=== PATIENT | female | born 1950 | race Caucasian/White ===

== ENCOUNTER 2017-07-22 21:01 | Observation (INO) | payer OTHER ==
[~2017-07-22] VITALS: Ht 154.9 cm; Wt 62.1 kg
[2017-07-22] MEDS ORDERED: ASPIRIN 325 MG TABLET ONE (21:24)
[2017-07-22 21:37] LABS: BASOPHILS % (AUTO) 0.4 % (0.0-5.0); HEMATOCRIT 36.8 % (36-48); LYMPHOCYTES % (AUTO) 24.8 % (21.0-51.0); MEAN CORPUSCULAR HEMOGLOBIN 30.9 pg (27.0-33.0); MEAN CORPUSCULAR VOLUME 88.4 fL (79-99); MONOCYTES % (AUTO) 6.7 % (3.0-13.0); NEUTROPHILS % (AUTO) 63.1 % (40.0-77.0); PLATELET COUNT (AUTO) 245 K/uL (130-400); RED BLOOD CELL COUNT(AUTO) 4.16 MIL/uL (4.00-5.50); WHITE BLOOD COUNT (AUTO) 11.4 K/uL (4.8-10.8)
[2017-07-22 21:41] LABS: APPEARANCE,URINE Clear (CLEAR); BILIRUBIN,URINE Small (NEGATIVE); COLOR,URINE Orange (YELLOW); GLUCOSE, URINE (UA) Negative (NEGATIVE); KETONES,URINE Negative (NEGATIVE); LEUKOCYTE ESTERASE ,URINE Small (NEGATIVE); NITRATE,URINE Positive (NEGATIVE); OCCULT BLOOD,URINE Trace (NEGATIVE); PROTEIN,URINE POS 1+ (NEGATIVE)
[2017-07-22 21:49] LABS: INR 1.14 (0.85-1.15); PARTIAL THROMBOPLASTIN TIME 32.5 SEC (26.3-35.5); PROTHROMBIN TIME 11.9 SEC (9.6-11.6)
[2017-07-22 21:55] LABS: WBC,URINE 0-1 /HPF (0-1)
[2017-07-22 21:56] LABS: BACTERIA,URINE Few /HPF (None Seen)
[2017-07-22 21:59] LABS: YEAST,URINE BUDDING Rare /HPF (None Seen)
[2017-07-22 22:00] LABS: ALBUMIN 4.3 g/dL (3.5-5.0); BILIRUBIN,TOTAL 0.4 mg/dL (0.2-1.0); CREATINE KINASE MB 1.3 ng/mL (0.5-3.6); CREATININE 0.9 mg/dL (0.5-1.5); POTASSIUM 3.4 mmol/L (3.5-5.1); SQUAMOUS EPITHELIAL CELL,UR Rare /HPF (0-2); TOTAL PROTEIN, SERUM 8.2 g/dL (6.0-8.3)
[2017-07-22] MEDS ORDERED: SODIUM CHLORIDE 0.9% 500ML 500 ML IV ONE (22:43)
[2017-07-22] MEDS ORDERED: NITROFURANTOIN MONOHYD/M-CRYST 100 MG CAPSULE PO ONE (22:43)
[2017-07-23] MEDS ORDERED: ONDANSETRON HCL MDV 20ML 2 MG/ML VIAL IVP PRN (01:00)
[2017-07-23] MEDS ORDERED: SODIUM CHLORIDE 0.9% 1000ML 1,000 ML IV SCH (01:00)
[2017-07-23] MEDS ORDERED: NITROFURANTOIN MONOHYD/M-CRYST 100 MG CAPSULE PO SCH (09:00)
[2017-07-23] MEDS ORDERED: FAMOTIDINE 20MG TAB 20 MG TAB PO SCH (09:00)
== END 2017-07-22 23:58 | disposition left against medical advice (07) ==
LOC: EDH 21:01 → EDHIP 22:45 → EDH 23:58
PROVIDERS: ADMIT Internal Medicine Nephrology; ATTEND Internal Medicine Nephrology
DX: N39.0 Urinary tract infection, site not specified (principal); E87.6 Hypokalemia; E87.1 Hypo-osmolality and hyponatremia; Z79.899 Other long term (current) drug therapy; Z79.82 Long term (current) use of aspirin; E78.5 Hyperlipidemia, unspecified; I10 Essential (primary) hypertension; E11.9 Type 2 diabetes mellitus without complications; Z90.49 Acquired absence of other specified parts of digestive tract; D72.829 Elevated white blood cell count, unspecified
CPT/HCPCS: 36415; 71045; 80053; 81001; 82550; 82553; 83874; 84484; 85025; 85610; 85730; 87088; 87186; 93005; 99285; G0378; J7040

== ENCOUNTER → 2017-09-10 | Outpatient (CLI) | payer OTHER | END | disposition home or self-care (01) | LOC: RAH 14:45 | PROVIDERS: ATTEND Family Medicine | DX: Z12.31 Encounter for screening mammogram for malignant neoplasm of breast (principal) | CPT/HCPCS: 77067 ==

== ENCOUNTER 2018-02-10 20:22 | Inpatient (IN) | payer OTHER ==
[~2018-02-10] VITALS: Ht 154.9 cm; Wt 59.4 kg
[2018-02-10] MEDS ORDERED: SODIUM CHLORIDE 0.9% 1000ML 1,000 ML IV ONE (21:52)
[2018-02-10] MEDS ORDERED: METOCLOPRAMIDE 10 MG/2 ML VIAL ONE (21:52)
[2018-02-10] MEDS ORDERED: METHYLPREDNISOLONE SOD SUCC 125MG/2ML VIAL ONE (21:52)
[2018-02-10 21:56] LABS: BASOPHILS % (AUTO) 0.5 % (0.0-5.0); EOSINOPHILS % (AUTO) 0.3 % (0.0-8.0); LYMPHOCYTES % (AUTO) 12.2 % (21.0-51.0); MEAN CORPUSCULAR HEMOGLOBIN 30.7 pg (27.0-33.0); MEAN CORPUSCULAR HGB CONC 34.9 g/dL (32.0-36.0); MONOCYTES % (AUTO) 6.6 % (3.0-13.0); NEUTROPHILS % (AUTO) 80.4 % (40.0-77.0); PLATELET COUNT (AUTO) 251 K/uL (130-400); RED BLOOD CELL COUNT(AUTO) 4.32 MIL/uL (4.00-5.50); RED CELL DISTRIBUTION WIDTH 13.1 % (11.0-15.5); WHITE BLOOD COUNT (AUTO) 13.2 K/uL (4.8-10.8)
[2018-02-10 22:05] LABS: CARBON DIOXIDE 26 mmol/L (21-32); CREATININE 0.7 mg/dL (0.5-1.5); GLOMERULAR FILTR. RATE CALC 89 mL/min (>60); GLUCOSE,RANDOM 148 mg/dL (70-105); POTASSIUM 4.4 mmol/L (3.5-5.1); SODIUM SERUM 122 mmol/L (136-145); UREA NITROGEN, BLOOD 10 mg/dL (7-18)
[2018-02-10 22:06] LABS: CHLORIDE 88 mmol/L (101-111)
[2018-02-10 22:07] LABS: CRP QUANTITATIVE < 0.20 mg/L (0.00-9.0)
[2018-02-10 22:51] LABS: APPEARANCE,URINE Clear (CLEAR); BILIRUBIN,URINE Negative (NEGATIVE); COLOR,URINE Yellow (YELLOW); GLUCOSE, URINE (UA) Negative (NEGATIVE); KETONES,URINE Negative (NEGATIVE); LEUKOCYTE ESTERASE ,URINE Negative (NEGATIVE); NITRATE,URINE Negative (NEGATIVE); OCCULT BLOOD,URINE Negative (NEGATIVE); PROTEIN,URINE Negative (NEGATIVE); UROBILINOGEN,URINE 0.2 mg/dL (0.2-1.0)
[2018-02-10] MEDS ORDERED: DIAZEPAM 5 MG TABLET PO ONE (23:30)
[2018-02-10] MEDS ORDERED: PROMETHAZINE HCL 25 MG SUPPOSITORY RC SCH (23:30)
[2018-02-10] MEDS ORDERED: ACETAMINOPHEN 325 MG TAB PO PRN (23:30)
[2018-02-10] MEDS ORDERED: KETOROLAC TROMETHAMINE 30MG/ML IV SCH (23:30)
[2018-02-11] VITALS (7 sets, daily range): BP systolic 107–149; BP diastolic 66–76
[2018-02-11] MEDS: SODIUM CHLORIDE 0.9% 1000ML 1,000 ML IV SCH ×3 (01:35→12:38)
[2018-02-11 06:05] LABS: BASOPHILS % (AUTO) 0.2 % (0.0-5.0); HEMATOCRIT 40.1 % (36-48); LYMPHOCYTES % (AUTO) 12.6 % (21.0-51.0); MEAN CORPUSCULAR HEMOGLOBIN 30.8 pg (27.0-33.0); MEAN CORPUSCULAR HGB CONC 34.7 g/dL (32.0-36.0); MONOCYTES % (AUTO) 1.3 % (3.0-13.0); NEUTROPHILS % (AUTO) 85.9 % (40.0-77.0); PLATELET COUNT (AUTO) 261 K/uL (130-400); RED BLOOD CELL COUNT(AUTO) 4.51 MIL/uL (4.00-5.50); RED CELL DISTRIBUTION WIDTH 12.8 % (11.0-15.5); WHITE BLOOD COUNT (AUTO) 6.4 K/uL (4.8-10.8)
[2018-02-11 06:21] LABS: ALBUMIN 3.5 g/dL (3.5-5.0); BILIRUBIN,TOTAL 0.4 mg/dL (0.2-1.0); CREATININE 0.8 mg/dL (0.5-1.5); CRP QUANTITATIVE 2.3 mg/L (0.00-9.0); POTASSIUM 4.3 mmol/L (3.5-5.1); TOTAL PROTEIN, SERUM 7.2 g/dL (6.0-8.3)
[2018-02-11 07:09] LABS: ERYTHROCYTE SEDIMENTATION RATE 5 MM/HR (0-30)
[2018-02-11] MEDS ORDERED: GADODIAMIDE 10 MMOL/20 ML ML IV ONE (08:08)
[2018-02-11] MEDS: FAMOTIDINE 20MG TAB 20 MG TAB PO SCH ×2 (08:30→21:29)
[2018-02-11] MEDS ORDERED: ROSU20TA30 PO (12:12)
[2018-02-11] MEDS ORDERED: ASPI-1197 PO (12:12)
[2018-02-11] MEDS ORDERED: AMLO5TAB7 PO (12:12)
[2018-02-11] MEDS ORDERED: TELM80TA2 PO (12:12)
[2018-02-11] MEDS ORDERED: ATEN50TA PO (12:12)
[2018-02-11] MEDS ORDERED: ASPIRIN 81MG TAB.CHEW ONE (21:14)
[2018-02-11] MEDS ORDERED: ATENOLOL 25 MG TABLET ONE (21:14)
[2018-02-12] MEDS: SODIUM CHLORIDE 0.9% 1000ML 1,000 ML IV SCH ×3 (02:16→22:19)
[2018-02-12 04:24] VITALS: BP 132/74
[2018-02-12 07:52] VITALS: BP 133/73
[2018-02-12] MEDS ORDERED: ATENOLOL 50 MG TABLET PO SCH (09:00)
[2018-02-12] MEDS ORDERED: ASPIRIN 81MG TAB.CHEW PO SCH (09:00)
[2018-02-12] MEDS: ATORVASTATIN CALCIUM 40 MG TABLET PO SCH (09:47)
[2018-02-12] MEDS: LOSARTAN 100 MG TABLET PO SCH (09:47)
[2018-02-12] MEDS: AMLODIPINE BESYLATE 5 MG TAB PO SCH (09:48)
[2018-02-12] MEDS: FAMOTIDINE 20MG TAB 20 MG TAB PO SCH ×2 (09:48→20:32)
[2018-02-12] MEDS ORDERED: MECLIZINE HCL 25 MG TABLET PO PRN (11:00)
[2018-02-12 11:43] VITALS: BP_SYST 142; BP_SYST 147; BP_SYST 164; BP_DIAS 72; BP_DIAS 75; BP_DIAS 83
[2018-02-12] MEDS ORDERED: IOHEXOL-350 75 ML VIAL IV ONE ×2 (11:46→14:57)
[2018-02-12] MEDS ORDERED: DiphenhydrAMINE HCL 50 MG/ML VIAL ONE (16:12)
[2018-02-12] MEDS ORDERED: DiphenhydrAMINE HCL 50 MG/ML VIAL IV PRN (16:15)
[2018-02-12 16:25] VITALS: BP 159/82
[2018-02-12 19:40] VITALS: BP 109/66
[2018-02-12] MEDS: ATENOLOL 50 MG TABLET PO SCH (20:32)
[2018-02-12] MEDS: ASPIRIN 81MG TAB.CHEW PO SCH (20:32)
[2018-02-13 00:05] VITALS: BP 121/65
[2018-02-13] MEDS: SODIUM CHLORIDE 0.9% 1000ML 1,000 ML IV SCH (03:53)
[2018-02-13 04:00] VITALS: BP 128/62
[2018-02-13 04:30] LABS: BASOPHILS % (AUTO) 0.9 % (0.0-5.0); EOSINOPHILS % (AUTO) 1.8 % (0.0-8.0); LYMPHOCYTES % (AUTO) 23.7 % (21.0-51.0); MEAN CORPUSCULAR HEMOGLOBIN 30.7 pg (27.0-33.0); MEAN CORPUSCULAR HGB CONC 34.3 g/dL (32.0-36.0); MEAN CORPUSCULAR VOLUME 89.5 fL (79-99); NEUTROPHILS % (AUTO) 63.6 % (40.0-77.0); PLATELET COUNT (AUTO) 218 K/uL (130-400); RED CELL DISTRIBUTION WIDTH 13.1 % (11.0-15.5); WHITE BLOOD COUNT (AUTO) 10.3 K/uL (4.8-10.8)
[2018-02-13 04:51] LABS: CREATININE 0.6 mg/dL (0.5-1.5); POTASSIUM 3.3 mmol/L (3.5-5.1)
[2018-02-13] MEDS ORDERED: POTASSIUM CHLORIDE 10% ELIXIR 20 MEQ/15 ML UDCUP PO PRN (05:30)
[2018-02-13] MEDS ORDERED: LIDOCAINE HCL-MPF 1% 2ML VIAL IVP PRN (05:30)
[2018-02-13] MEDS: POTASSIUM CHLORIDE 20 MEQ ERTAB PO PRN ×3 (06:26→18:50)
[2018-02-13] MEDS ORDERED: MAGNESIUM 2GM PREMIX 50ML 50 ML IV PRN (07:30)
[2018-02-13 07:46] VITALS: BP 160/82
[2018-02-13 08:56] LABS: CHOLESTEROL 189 mg/dL (<200); HDL CHOLESTEROL 51 mg/dL (35-85); LDL DIRECT 128 mg/dL (0-99); TRIGLYCERIDES 67 mg/dL (30-200)
[2018-02-13] MEDS: FAMOTIDINE 20MG TAB 20 MG TAB PO SCH ×2 (10:07→20:07)
[2018-02-13] MEDS: AMLODIPINE BESYLATE 5 MG TAB PO SCH (10:07)
[2018-02-13] MEDS: LOSARTAN 100 MG TABLET PO SCH (10:07)
[2018-02-13] MEDS: ATORVASTATIN CALCIUM 40 MG TABLET PO SCH (10:10)
[2018-02-13] MEDS ORDERED: CARB200T6 PO (10:19)
[2018-02-13 11:47] VITALS: BP 177/82
[2018-02-13 16:19] VITALS: BP 128/69
[2018-02-13 19:36] VITALS: BP 140/67
[2018-02-13] MEDS: ASPIRIN 81MG TAB.CHEW PO SCH (20:07)
[2018-02-13] MEDS: ATENOLOL 50 MG TABLET PO SCH (20:07)
[2018-02-13] MEDS: ATORVASTATIN CALCIUM 20 MG TABLET PO SCH (20:11)
[2018-02-14] VITALS (7 sets, daily range): BP systolic 106–137; BP diastolic 58–78
[2018-02-14 05:41] LABS: BASOPHILS % (AUTO) 0.8 % (0.0-5.0); EOSINOPHILS % (AUTO) 2.4 % (0.0-8.0); HEMATOCRIT 38.2 % (36-48); LYMPHOCYTES % (AUTO) 15.2 % (21.0-51.0); MEAN CORPUSCULAR HEMOGLOBIN 29.5 pg (27.0-33.0); MEAN CORPUSCULAR HGB CONC 33.1 g/dL (32.0-36.0); MEAN CORPUSCULAR VOLUME 89.1 fL (79-99); MONOCYTES % (AUTO) 8.5 % (3.0-13.0); NEUTROPHILS % (AUTO) 73.1 % (40.0-77.0); PLATELET COUNT (AUTO) 217 K/uL (130-400); RED BLOOD CELL COUNT(AUTO) 4.29 MIL/uL (4.00-5.50); RED CELL DISTRIBUTION WIDTH 13.1 % (11.0-15.5); WHITE BLOOD COUNT (AUTO) 9.4 K/uL (4.8-10.8)
[2018-02-14 06:08] LABS: CREATININE 0.6 mg/dL (0.5-1.5); POTASSIUM 3.9 mmol/L (3.5-5.1)
[2018-02-14] MEDS: FAMOTIDINE 20MG TAB 20 MG TAB PO SCH ×2 (09:16→20:14)
[2018-02-14] MEDS: LOSARTAN 100 MG TABLET PO SCH (09:16)
[2018-02-14] MEDS: AMLODIPINE BESYLATE 5 MG TAB PO SCH (09:16)
[2018-02-14] MEDS ORDERED: SODIUM CHLORIDE 0.9% 500ML 500 ML IV SCH (16:05)
[2018-02-14 19:59] LABS: APPEARANCE,URINE Clear (CLEAR); BILIRUBIN,URINE Negative (NEGATIVE); COLOR,URINE Yellow (YELLOW); GLUCOSE, URINE (UA) Negative (NEGATIVE); KETONES,URINE Negative (NEGATIVE); LEUKOCYTE ESTERASE ,URINE Negative (NEGATIVE); NITRATE,URINE Negative (NEGATIVE); OCCULT BLOOD,URINE Negative (NEGATIVE); PH,URINE 6.5 (5.0-8.0); PROTEIN,URINE Negative (NEGATIVE); UROBILINOGEN,URINE 0.2 mg/dL (0.2-1.0)
[2018-02-14] MEDS ORDERED: CARBAMAZEPINE 200 MG TABLET PO PRN (20:00)
[2018-02-14] MEDS: ATORVASTATIN CALCIUM 20 MG TABLET PO SCH (20:14)
[2018-02-14] MEDS: ATENOLOL 50 MG TABLET PO SCH (20:15)
[2018-02-14] MEDS ORDERED: PREDNISONE 20 MG TABLET PO SCH (21:00)
[2018-02-15] VITALS (23 sets, daily range): BP systolic 99–163; BP diastolic 63–84
[2018-02-15 05:53] LABS: HEMATOCRIT 39.9 % (36-48); MEAN CORPUSCULAR HGB CONC 34.7 g/dL (32.0-36.0); MEAN CORPUSCULAR VOLUME 89.3 fL (79-99); PLATELET COUNT (AUTO) 238 K/uL (130-400); RED BLOOD CELL COUNT(AUTO) 4.47 MIL/uL (4.00-5.50)
[2018-02-15] MEDS ORDERED: DiphenhydrAMINE HCL 50 MG/ML VIAL IV ONE (06:00)
[2018-02-15 06:01] LABS: INR 0.97 (0.85-1.15); PARTIAL THROMBOPLASTIN TIME 26.8 SEC (26.3-35.5); PROTHROMBIN TIME 10.2 SEC (9.6-11.6)
[2018-02-15 06:43] LABS: CARBON DIOXIDE 24 mmol/L (21-32); CHLORIDE 103 mmol/L (101-111); CREATINE KINASE, TOTAL 51 U/L (21-232); CREATININE 0.9 mg/dL (0.5-1.5); GLOMERULAR FILTR. RATE CALC 67 mL/min (>60); GLUCOSE,RANDOM 158 mg/dL (70-105); MYOGLOBIN 28 ng/mL (10-92); SODIUM SERUM 140 mmol/L (136-145); TROPONIN I < 0.04 ng/mL (0.00-0.06); UREA NITROGEN, BLOOD 19 mg/dL (7-18)
[2018-02-15] MEDS ORDERED: METHYLPREDNISOLONE SOD SUCC 125MG/2ML VIAL IVP SCH (07:00)
[2018-02-15] MEDS ORDERED: NITROGLYCERIN 5 MG/ML 10 ML VIAL IV ONE (08:44)
[2018-02-15] MEDS ORDERED: LIDOCAINE HCL 2% 20ML ONE (08:44)
[2018-02-15] MEDS ORDERED: IODIXANOL 320 MG/ML 100 ML VIAL ONE (08:44)
[2018-02-15] MEDS: AMLODIPINE BESYLATE 5 MG TAB PO SCH (09:00)
[2018-02-15] MEDS: LOSARTAN 100 MG TABLET PO SCH (09:00)
[2018-02-15] MEDS: FAMOTIDINE 20MG TAB 20 MG TAB PO SCH ×2 (09:00→21:35)
[2018-02-15] MEDS ORDERED: HEPARIN SODIUM 1000UNIT/ML 10ML VIAL ONE (09:25)
[2018-02-15] MEDS: SODIUM CHLORIDE 0.9% 1000ML 1,000 ML IV SCH ×2 (10:05→14:09)
[2018-02-15] MEDS ORDERED: THROMBIN-JMI 5000 UNIT/VIAL TP ONE (14:20)
[2018-02-15] MEDS ORDERED: LIDOCAINE HCL 1% 20 ML VIAL ONE (14:20)
[2018-02-15] MEDS ORDERED: BACITRACIN 50,000 UNIT VIAL ONE (14:20)
[2018-02-15] MEDS ORDERED: CITRIC ACID/SODIUM CITRATE 30 ML UDCUP ONE (14:45)
[2018-02-15] MEDS ORDERED: ONDANSETRON HCL 4 MG/2 ML VIAL ONE (14:46)
[2018-02-15] MEDS ORDERED: DEXAMETHASONE SOD PHOSPHATE 10MG/ML 1ML VIAL ONE (14:46)
[2018-02-15] MEDS ORDERED: LIDOCAINE PF 2% 5ML ABBOJECT ONE (14:46)
[2018-02-15] MEDS ORDERED: FENTANYL CITRATE PF 50 MCG/1 ML 2ML VIAL ONE ×2 (14:47→16:45)
[2018-02-15] MEDS ORDERED: NEOSTIGMINE 5MG/5ML SYR IV ONE (14:47)
[2018-02-15] MEDS ORDERED: GLYCOPYRROLATE 1 MG/5 ML SYRINGE ONE (14:47)
[2018-02-15] MEDS ORDERED: MIDAZOLAM HCL 1 MG/ML 2ML VIAL ONE (14:47)
[2018-02-15] MEDS ORDERED: ROCURONIUM 10MG/1ML SYR 10 MG/ML ML ONE (14:47)
[2018-02-15] MEDS ORDERED: PROPOFOL 10 MG/ML 20ML VIAL IV ONE (14:47)
[2018-02-15] MEDS ORDERED: CEFUROXIME SODIUM 1.5 GM VIAL IVP PRN (15:00)
[2018-02-15] MEDS ORDERED: TRAMADOL HCL 50 MG TABLET PO PRN (15:45)
[2018-02-15] MEDS ORDERED: EPHEDRINE SULFATE 50 MG/ML AMPULE ONE (15:52)
[2018-02-15] MEDS ORDERED: OCTYL 2-CYANOACRYLATE 1 EACH TP ONE (16:35)
[2018-02-15] MEDS: TRAMADOL HCL 50 MG TABLET PO PRN (17:50)
[2018-02-15] MEDS: ATORVASTATIN CALCIUM 20 MG TABLET PO SCH (21:35)
[2018-02-15] MEDS: ATENOLOL 50 MG TABLET PO SCH (22:20)
[2018-02-16] VITALS (9 sets, daily range): BP systolic 108–143; BP diastolic 41–80
[2018-02-16] MEDS: TRAMADOL HCL 50 MG TABLET PO PRN ×3 (01:38→16:49)
[2018-02-16] MEDS: CEFUROXIME SODIUM 1.5 GM VIAL IVP SCH ×2 (03:29→16:57)
[2018-02-16 03:39] LABS: HEMATOCRIT 33.6 % (36-48); MEAN CORPUSCULAR HEMOGLOBIN 30.4 pg (27.0-33.0); MEAN CORPUSCULAR VOLUME 89.4 fL (79-99); PLATELET COUNT (AUTO) 189 K/uL (130-400); RED BLOOD CELL COUNT(AUTO) 3.76 MIL/uL (4.00-5.50); RED CELL DISTRIBUTION WIDTH 13.1 % (11.0-15.5); WHITE BLOOD COUNT (AUTO) 17.6 K/uL (4.8-10.8)
[2018-02-16 03:49] LABS: CREATININE 0.7 mg/dL (0.5-1.5); POTASSIUM 3.7 mmol/L (3.5-5.1)
[2018-02-16] MEDS: FAMOTIDINE 20MG TAB 20 MG TAB PO SCH ×2 (09:05→21:04)
[2018-02-16] MEDS: AMLODIPINE BESYLATE 5 MG TAB PO SCH (09:05)
[2018-02-16] MEDS: POTASSIUM CHLORIDE 20 MEQ ERTAB PO PRN (09:05)
[2018-02-16] MEDS ORDERED: PHARMACY COMMUNICATION MISC SCH (09:15)
[2018-02-16] MEDS: ASPIRIN 325MG EC TAB 325 MG TABLET.DR PO SCH (10:27)
[2018-02-16] MEDS ORDERED: SENNOSIDES 8.6 MG TABLET PO PRN (19:00)
[2018-02-16] MEDS: ASPIRIN 81MG TAB.CHEW PO SCH (19:33)
[2018-02-16] MEDS: ATORVASTATIN CALCIUM 20 MG TABLET PO SCH (21:04)
[2018-02-16] MEDS: ATENOLOL 50 MG TABLET PO SCH (21:04)
[2018-02-17 00:15] VITALS: BP 119/56
[2018-02-17 02:40] VITALS: BP 145/67
[2018-02-17] MEDS: CEFUROXIME SODIUM 1.5 GM VIAL IVP SCH (02:48)
[2018-02-17 03:38] LABS: BASOPHILS % (AUTO) 0.5 % (0.0-5.0); EOSINOPHILS % (AUTO) 0.8 % (0.0-8.0); HEMATOCRIT 32.9 % (36-48); MEAN CORPUSCULAR HEMOGLOBIN 30.9 pg (27.0-33.0); MEAN CORPUSCULAR HGB CONC 34.2 g/dL (32.0-36.0); MEAN CORPUSCULAR VOLUME 90.2 fL (79-99); MONOCYTES % (AUTO) 8.3 % (3.0-13.0); NEUTROPHILS % (AUTO) 71.4 % (40.0-77.0); NUCLEATED RED BLOOD CELLS 0.1 % (0.0-0.19); PLATELET COUNT (AUTO) 193 K/uL (130-400); RED BLOOD CELL COUNT(AUTO) 3.65 MIL/uL (4.00-5.50); RED CELL DISTRIBUTION WIDTH 13.1 % (11.0-15.5); WHITE BLOOD COUNT (AUTO) 11.9 K/uL (4.8-10.8)
[2018-02-17 03:52] LABS: CREATININE 0.6 mg/dL (0.5-1.5); MAGNESIUM 1.8 mg/dL (1.80-2.40); POTASSIUM 3.7 mmol/L (3.5-5.1)
[2018-02-17 03:58] VITALS: BP 140/74
[2018-02-17 08:09] VITALS: BP 126/74
[2018-02-17] MEDS ORDERED: MEMANTINE HCL 5 MG TABLET PO SCH (09:00)
[2018-02-17] MEDS: AMLODIPINE BESYLATE 5 MG TAB PO SCH (09:35)
[2018-02-17] MEDS: ASPIRIN 325MG EC TAB 325 MG TABLET.DR PO SCH (09:35)
[2018-02-17] MEDS: FAMOTIDINE 20MG TAB 20 MG TAB PO SCH (09:35)
[2018-02-17 11:43] VITALS: BP 142/83
[2018-02-17] MEDS: TRAMADOL HCL 50 MG TABLET PO PRN (12:00)
[2018-02-17] MEDS ORDERED: ASPI-891 PO (15:24)
[2018-02-17] MEDS ORDERED: MECL-111 PO (15:24)
[2018-02-17 16:00] VITALS: BP 142/73
[2018-02-17] MEDS ORDERED: ACETAMINOPHEN 325 MG TAB PO SCH (16:45)
[2018-02-17] MEDS ORDERED: ATORVASTATIN CALCIUM 20 MG TABLET PO SCH (21:00)
== END 2018-02-17 17:55 | disposition home or self-care (01) | DRG 38 ==
LOC: EDH 20:22 → EDHIP 22:50 → OBSVTOIN 22:50 → 4AH 02-11 01:22 → 2BH 02-15 17:05 → 2AH 02-17 05:49
PROVIDERS: ADMIT Internal Medicine; ATTEND Internal Medicine
PROC: 03CK0ZZ Extirpation of Matter from Right Internal Carotid Artery, Open Approach (ICD-10-PCS; 2018-02-15)
PROC: B3181ZZ Fluoroscopy of Bilateral Internal Carotid Arteries using Low Osmolar Contrast (ICD-10-PCS; 2018-02-15)
PROC: B31C1ZZ Fluoroscopy of Bilateral External Carotid Arteries using Low Osmolar Contrast (ICD-10-PCS; 2018-02-15)
PROC: B31D1ZZ Fluoroscopy of Right Vertebral Artery using Low Osmolar Contrast (ICD-10-PCS; 2018-02-15)
PROC: B3151ZZ Fluoroscopy of Bilateral Common Carotid Arteries using Low Osmolar Contrast (ICD-10-PCS; 2018-02-15)
PROC: 03CH0ZZ Extirpation of Matter from Right Common Carotid Artery, Open Approach (ICD-10-PCS; principal; 2018-02-15 14:50)
DX: I65.23 Occlusion and stenosis of bilateral carotid arteries (principal); E87.1 Hypo-osmolality and hyponatremia; H81.10 Benign paroxysmal vertigo, unspecified ear; G50.0 Trigeminal neuralgia; E78.5 Hyperlipidemia, unspecified; I10 Essential (primary) hypertension; H66.92 Otitis media, unspecified, left ear; D72.829 Elevated white blood cell count, unspecified; R09.89 Other specified symptoms and signs involving the circulatory and respiratory systems; I35.0 Nonrheumatic aortic (valve) stenosis; Z91.041 Radiographic dye allergy status; Z79.82 Long term (current) use of aspirin; Z79.899 Other long term (current) drug therapy; Z82.49 Family history of ischemic heart disease and other diseases of the circulatory system
CPT/HCPCS: 36223; 36226; 36415; 70450; 70496; 70498; 70553; 71045; 80048; 80053; 80061; 81003; 82550; 83036; 83735; 83874; 84484; 85025; 85027; 85610; 85651; 85730; 86140; 86850; 86900; 86901; 86922; 88304; 93005; 93306; 93880; 97039; A4218; A9579; C1760; C1769; C1894; J0697; J1100; J1200; J1644; J1885; J2001; J2250; J2405; J2704; J2710; J2765; J2930; J3010; J3475; J3490; J7030; Q9967

== ENCOUNTER → 2018-03-19 | Outpatient (CLI) | payer OTHER ==
[~2018-03-19] MED LIST: AMLO5TAB9 PO; ASPI-891 PO; ATEN50TA PO; CARB200T6 PO; MECL-111 PO; ROSU20TA30 PO
== END | disposition home or self-care (01) ==
LOC: OIH 13:50
PROVIDERS: ATTEND Internal Medicine Cardiovascular Disease
DX: Z13.6 Encounter for screening for cardiovascular disorders (principal)
CPT/HCPCS: 75571

== ENCOUNTER 2018-05-13 13:54 | Emergency (ER) | payer OTHER ==
[2018-05-13 14:28] LABS: APPEARANCE,URINE Clear (CLEAR); BILIRUBIN,URINE Negative (NEGATIVE); COLOR,URINE Yellow (YELLOW); GLUCOSE, URINE (UA) Negative (NEGATIVE); KETONES,URINE Negative (NEGATIVE); LEUKOCYTE ESTERASE ,URINE Negative (NEGATIVE); NITRATE,URINE Negative (NEGATIVE); OCCULT BLOOD,URINE Trace (NEGATIVE); PH,URINE 6.5 (5.0-8.0); PROTEIN,URINE Negative (NEGATIVE); UROBILINOGEN,URINE 0.2 mg/dL (0.2-1.0)
[2018-05-13 14:33] LABS: EOSINOPHILS % (AUTO) 3.3 % (0.0-8.0); HEMATOCRIT 43.4 % (36-48); LYMPHOCYTES % (AUTO) 18.6 % (21.0-51.0); MEAN CORPUSCULAR HEMOGLOBIN 30.5 pg (27.0-33.0); MEAN CORPUSCULAR HGB CONC 34.1 g/dL (32.0-36.0); MEAN CORPUSCULAR VOLUME 89.5 fL (79-99); MONOCYTES % (AUTO) 4.8 % (3.0-13.0); NEUTROPHILS % (AUTO) 72.3 % (40.0-77.0); NUCLEATED RED BLOOD CELLS 0.1 % (0.0-0.19); PLATELET COUNT (AUTO) 218 K/uL (130-400); RED BLOOD CELL COUNT(AUTO) 4.85 MIL/uL (4.00-5.50); RED CELL DISTRIBUTION WIDTH 13.1 % (11.0-15.5); WHITE BLOOD COUNT (AUTO) 9.2 K/uL (4.8-10.8)
[2018-05-13 14:43] LABS: BACTERIA,URINE None Seen /HPF (None Seen); RBC,URINE 0-1 /HPF (0-1); SQUAMOUS EPITHELIAL CELL,UR 0-2 /HPF (0-2); WBC,URINE None Seen /HPF (0-1)
[2018-05-13 14:44] LABS: CREATININE 0.7 mg/dL (0.5-1.5); POTASSIUM 3.6 mmol/L (3.5-5.1)
[2018-05-13 14:46] LABS: INR 0.95 (0.85-1.15); PARTIAL THROMBOPLASTIN TIME 28.9 SEC (26.3-35.5)
[2018-05-13 14:49] LABS: ALBUMIN 4.6 g/dL (3.5-5.0); BILIRUBIN,TOTAL 0.3 mg/dL (0.2-1.0); TOTAL PROTEIN, SERUM 8.4 g/dL (6.0-8.3)
[2018-05-13] MEDS ORDERED: DEXAMETHASONE SOD PHOSPHATE 10MG/ML 1ML VIAL ONE (15:12)
[2018-05-13] MEDS ORDERED: KETOROLAC TROMETHAMINE 15MG/ML ONE (15:13)
[2018-05-13] MEDS ORDERED: DiphenhydrAMINE HCL 50 MG/ML VIAL ONE (15:13)
== END 2018-05-13 16:21 | disposition home or self-care (01) ==
LOC: EDH 13:54
DX: R51 Headache (principal); I10 Essential (primary) hypertension; E78.5 Hyperlipidemia, unspecified; Z90.49 Acquired absence of other specified parts of digestive tract
CPT/HCPCS: 36415; 70450; 80053; 81001; 85025; 85610; 85730; 96374; 96375; 99284; J1100; J1200; J1885

== ENCOUNTER → 2020-01-23 | Outpatient (CLI) | payer OTHER ==
[~2020-01-23] MED LIST changes: +AMLO-257 PO; -AMLO5TAB9 PO; -MECL-111 PO; +MECL-160 PO; -ROSU20TA30 PO; +ROSU20TA31 PO
== END | disposition home or self-care (01) ==
LOC: RAH 12:50
PROVIDERS: ATTEND Family Medicine
DX: Z12.31 Encounter for screening mammogram for malignant neoplasm of breast (principal)
CPT/HCPCS: 77067

== ENCOUNTER → 2020-02-01 | Outpatient (CLI) | payer OTHER | END | disposition home or self-care (01) | LOC: SHCH 14:21 | PROVIDERS: ATTEND Internal Medicine Cardiovascular Disease | DX: R01.1 Cardiac murmur, unspecified (principal); I65.23 Occlusion and stenosis of bilateral carotid arteries | CPT/HCPCS: 93306; 93356; 93880 ==

== ENCOUNTER → 2020-05-31 | Outpatient (CLI) | payer OTHER | END | disposition home or self-care (01) | LOC: SHCH 11:28 | PROVIDERS: ATTEND Internal Medicine Cardiovascular Disease | DX: R00.2 Palpitations (principal); R01.1 Cardiac murmur, unspecified | CPT/HCPCS: 93306; 93356 ==

== ENCOUNTER 2022-08-23 17:32 | Emergency (ER) | payer OTHER ==
[~2022-08-23] VITALS: Ht 160 cm; Wt 56.7 kg
[~2022-08-23 17:32] MED LIST changes: -ROSU20TA31 PO; +ROSU20TA73 PO
[2022-08-23 19:41] LABS: BASOPHILS % (AUTO) 0.3 % (0.0-5.0); EOSINOPHILS % (AUTO) 0.2 % (0.0-8.0); HEMATOCRIT 40.1 % (36-48); LYMPHOCYTES % (AUTO) 7.4 % (21.0-51.0); MEAN CORPUSCULAR HEMOGLOBIN 30.1 pg (27.0-33.0); MEAN CORPUSCULAR HGB CONC 35.7 g/dL (32.0-36.0); MEAN CORPUSCULAR VOLUME 84.4 fL (79-99); MONOCYTES % (AUTO) 5.2 % (3.0-13.0); NEUTROPHILS % (AUTO) 86.1 % (40.0-77.0); PLATELET COUNT (AUTO) 225 K/uL (130-400); RED BLOOD CELL COUNT(AUTO) 4.75 MIL/uL (4.00-5.50); RED CELL DISTRIBUTION WIDTH 12.2 % (11.0-15.5); WHITE BLOOD COUNT (AUTO) 15.7 K/uL (4.8-10.8)
[2022-08-23 19:43] LABS: APPEARANCE,URINE CLEAR (CLEAR); BILIRUBIN,URINE NEGATIVE (NEGATIVE); COLOR,URINE COLORLESS (YELLOW); GLUCOSE, URINE (UA) NEGATIVE (NEGATIVE); KETONES,URINE NEGATIVE (NEGATIVE); LEUKOCYTE ESTERASE ,URINE 25 Leu/uL (NEGATIVE); NITRATE,URINE NEGATIVE (NEGATIVE); OCCULT BLOOD,URINE NEGATIVE (NEGATIVE); PH,URINE 5.5 (5.0-8.0); PROTEIN,URINE NEGATIVE (NEGATIVE); UROBILINOGEN,URINE 0.2 mg/dL (0.2-1.0)
[2022-08-23 19:45] LABS: BACTERIA,URINE RARE /HPF (None Seen); RBC,URINE 0-1 /HPF (0-1); SQUAMOUS EPITHELIAL CELL,UR FEW /HPF (0-2)
[2022-08-23 20:05] LABS: ALBUMIN 4.2 g/dL (3.5-5.0); B-TYPE NATRIURETIC PEPTIDE 176 pg/mL (0-100); CREATININE 1.5 mg/dL (0.5-1.5); TOTAL PROTEIN, SERUM 8.2 g/dL (6.0-8.3)
[2022-08-23 20:16] LABS: POTASSIUM 2.7 mmol/L (3.5-5.1)
[2022-08-23] MEDS ORDERED: POTASSIUM CHLORIDE 20 MEQ/100 ML BAG IV SCH (20:30)
[2022-08-23] MEDS ORDERED: POTASSIUM CHLORIDE 10% ELIXIR 20 MEQ/15 ML UDCUP PO ONE (20:30)
[2022-08-23] MEDS ORDERED: POTASSIUM BICARB/CIT AC 25 MEQ TABLET.EFF PO ONE (20:30)
[2022-08-23 22:32] VITALS: BP 132/66
== END 2022-08-23 22:49 | disposition home or self-care (01) ==
LOC: EDH 17:32
DX: M79.10 Myalgia, unspecified site (principal); E78.00 Pure hypercholesterolemia, unspecified; I10 Essential (primary) hypertension; Z79.82 Long term (current) use of aspirin; Z79.899 Other long term (current) drug therapy; Z90.49 Acquired absence of other specified parts of digestive tract; Z20.822 Contact with and (suspected) exposure to COVID-19
CPT/HCPCS: 99285; 82550; 84484; 80053; 83880; 85025; 87804 ×2; 81001; 36415; 87635; 71045; 96374; 93005; C9803; J3480

== ENCOUNTER → 2023-02-26 | Outpatient (CLI) | payer OTHER ==
[~2023-02-26] MED LIST changes: -MECL-160 PO; +MECL-302 PO
== END | disposition home or self-care (01) ==
LOC: SHCH 10:00
PROVIDERS: ATTEND Internal Medicine Cardiovascular Disease
DX: I65.23 Occlusion and stenosis of bilateral carotid arteries (principal); I73.9 Peripheral vascular disease, unspecified
CPT/HCPCS: 93880

== ENCOUNTER → 2023-02-26 | Outpatient (CLI) | payer OTHER | END | disposition home or self-care (01) | LOC: SHCH 10:00 | PROVIDERS: ATTEND Internal Medicine Cardiovascular Disease | DX: I70.293 Other atherosclerosis of native arteries of extremities, bilateral legs (principal) | CPT/HCPCS: 93925 ==

== ENCOUNTER → 2023-02-26 | Outpatient (CLI) | payer OTHER | END | disposition home or self-care (01) | LOC: SHCH 09:55 | PROVIDERS: ATTEND Internal Medicine Cardiovascular Disease | DX: I70.0 Atherosclerosis of aorta (principal); I70.8 Atherosclerosis of other arteries; I65.23 Occlusion and stenosis of bilateral carotid arteries; I70.293 Other atherosclerosis of native arteries of extremities, bilateral legs | CPT/HCPCS: 93880; 93925; 93978 ==